=== PATIENT | female | born 1995 | race Caucasian/White ===

== ENCOUNTER 2024-01-05 21:07 | Emergency (ER) | payer OTHER, SELFPAY ==
--- NOTE | ~2024-01-05 | XR_ITS ---
EXAMINATION: XR LUMBOSACRAL SPINE CLINICAL INFORMATION: Radicular back pain COMPARISON: 06/28/2019 TECHNIQUE: Three views of the lumbosacral spine. FINDINGS: There is anatomic alignment of the lumbar vertebral bodies and posterior elements. Vertebral body heights and intervertebral disc spaces are maintained. No acute fracture is seen. Sacroiliac joints appear intact. XR/XR lumbar spine 2-3V IMPRESSION: No acute findings identified.
[2024-01-05 21:38] VITALS: BP 132/89; PULSE 54; RESP 16; TEMP 36.9; O2SAT 100; BMI 43.5
[2024-01-06] MEDS: Ketorolac Tromethamine 60 MG/2 ML VIAL IM (04:31)
[2024-01-06] MEDS: Cyclobenzaprine HCl 10 MG TABLET PO (04:31)
[2024-01-06 05:53] VITALS: BP 121/89; PULSE 88; RESP 17; TEMP 36.4; O2SAT 100
--- NOTE | 2024-01-06 05:55 | ED_ITS ---
HPI - Back Pain/Injury General Chief Complaint: Back Pain/Injury Stated Complaint: Lower back pain/ w leg pain Time Seen by Provider: 01/06/24 03:37 Source: patient Mode of arrival: ambulatory Limitations: no limitations History of Present Illness HPI Narrative: lumbar back pain for weeks radiating down both legs, no bowel or bladder incontinence, no fever MD elicited complaint: back pain Onset (ago): week(s) Timing: constant Severity: mild Related Data Previous Rx's ?Medication ?Instructions ?Recorded cyclobenzaprine 10 mg tablet 10 mg PO TID #10 tabs 01/06/24 naproxen 500 mg tablet (Naprosyn) 500 mg PO BID #20 tabs 01/06/24 Allergies Allergy/AdvReac Type Severity Reaction Status Date / Time amoxicillin [AMOXICILLIN] Allergy Mild RASH Verified 01/05/24 21:43 Penicillins [PENICILLINS] Allergy Mild RASH Verified 01/05/24 21:43 Review of Systems Review of Systems: Yes all other systems are reviewed and are negative Neurologic: Denies Sensory deficit (Neuro) [facility] Social History Social History Advance Directives: No Advance Directives Information Provided: Yes Physical Exam Vital Signs: Vital Signs: Last Vital Signs Temp 97.5 F 01/06/24 05:53 Pulse 88 01/06/24 05:53 Resp 17 01/06/24 05:53 BP 121/89 01/06/24 05:53 Pulse Ox 100 01/06/24 05:53 O2 Del Method Room Air 01/06/24 05:53 BMI result Body Mass Index 43.5 Const: General: healthy appearing Nutritional Appearance: average body habitus Orientation/consciousness: oriented to person and patient oriented x3 Limitations: no limitations HEENT: Head: Yes normal to inspection Ears: external ears normal General nose exam: Normal external nose present Mouth: Normal oral and palatal mucosa present and oropharynx normal Throat: Yes posterior oropharynx normal Eyes: General: appearance normal, both eyes and all related structures Neck: Other: supple Neck: Yes normal visual inspection Chest: Chest palpation & inspection: normal inspection of the chest Resp: Auscultation: clear to auscultation bilaterally Cardio: Jugular venous distension: no JVD Rate: regular rate Rhythm: regular rhythm Heart sounds: S1 normal heart sound present and S2 normal heart sound present GI: Inspection: Yes normal to inspection Palpation (GI): Soft to palpation, nontender and No hepatosplenomegaly present Auscultation: normal bowel sounds Back/Spine/Pelvis: Other: slight lumbar tenderness, right SI joint tenderness and right Sciatica tenderness Skin: General skin exam: no rashes or lesions noted Neuro: General: oriented to person and patient oriented x3 Cranial nerves: Yes CN's II-XII intact bilaterally Motor exam (neuro): 5/5 motor strength present throughout Sensory Exam: No Sensory deficit (Neuro) Extrem: General: Yes normal to inspection Psych: Appearance: grossly normal Course Reevaluation(s) Reevaluation #1: xray negative for tano destruction will dc on NSAIDS and flexeril Time: 05:58 Medications Administered Discontinued Medications Generic Name Dose Route Start Last Admin Trade Name Freq PRN Reason Stop Dose Admin Cyclobenzaprine HCl 10 mg 01/06/24 04:24 01/06/24 04:31 Cyclobenzaprine Hcl 10 Mg Tablet PO 01/06/24 04:25 10 mg ONCE ONE Administration Ketorolac Tromethamine 60 mg 01/06/24 04:24 01/06/24 04:31 Ketorolac Tromethamine 60 Mg/2 Ml Vial IM 01/06/24 04:25 60 mg ONCE ONE Administration Medical Decision Making Differential Diagnosis Differential Diagnoses: The differential diagnosis associated with the presentation includes (radicular back pain, sciatica) Independent Interpretation I performed an independent interpretation of an: Plain X-Ray (no tano destruction) Tests considered The following testing was considered but not selected: MRI of spine considered but no evidence of neurologic compromise Discharge Plan Discharge Clinical Impression: Lumbar radiculopathy, Sciatica Patient Disposition: Home, Self-Care Instructions: Acute Low Back Pain (ED), Lumbar Radiculopathy (ED) Prescriptions: New cyclobenzaprine 10 mg tablet 10 mg PO TID Qty: 10 0RF naproxen [Naprosyn] 500 mg tablet 500 mg PO BID Qty: 20 0RF Referrals: Physician,Unknown J [Primary Care Provider] - 1 week Print Language: Ukrainian
[2024-01-06 06:12] VITALS: BP 121/85; PULSE 88; RESP 17; TEMP 36.4; O2SAT 100
== END 2024-01-06 06:13 | disposition home or self-care (01) ==
PROVIDERS: Emergency Provider Emergency Medicine
DX: M54.16 Radiculopathy, lumbar region (principal); M54.40 Lumbago with sciatica, unspecified side
CPT/HCPCS: 72100; 96372; 99284; J1885

== ENCOUNTER 2024-07-25 08:35 | Emergency (ER) | payer OTHER, SELFPAY ==
--- NOTE | 2024-07-25 | ECG_ITS ---
Test Reason : syncope Blood Pressure : / mmHG Vent. Rate : 070 BPM Atrial Rate : 070 BPM P-R Int : 144 ms QRS Dur : 090 ms QT Int : 370 ms P-R-T Axes : 037 046 025 degrees QTc Int : 399 ms Normal sinus rhythm Normal ECG When compared with ECG of 05-OCT-2014 17:25, No significant change was found Referred By: Tanika Bojorquez Electronically Signed By:SUSAN GORDON MD
[2024-07-25 08:42] VITALS: BP 120/78; PULSE 75; RESP 18; TEMP 37; O2SAT 98; BMI 35.9
--- NOTE | 2024-07-25 08:44 | ED_ITS ---
HPI - General Adult General Chief complaint: Syncope Stated complaint: Lightheaded, dizzy Time Seen by Provider: 07/25/24 08:44 Source: patient Mode of arrival: ambulatory Limitations: no limitations History of Present Illness ED Provider: Tanika Bojorquez PA-C HPI narrative: 29-year-old female with no significant medical history presents to the ED after syncopizing in the PACU after her daughter had lacrimal tubes placed. The patient was standing up at her daughter's bedside wiping blood from her child's face when she started experiencing blurry vision. She felt weak and sat down on the floor. Denies loss of consciousness, denies head strike. Patient has not eaten anything this morning and was given juice in the PACU. Patient has been experiencing increased anxiety since Tuesday and has had poor appetite since then. Endorses one episode of vomiting on Tuesday. Denies any recent illness, cough, SOB, or other abdominal complaints. Patient states that she has once had a syncopal response to seeing blood a few years ago. She also endorses occasional palpitations but denies any diagnoses arrhythmia. On interview she is tearful and feels like she is in a brain fog. Denies photophobia, vision changes or chest pain. Relieving factors: none Exacerbating factors: none Associated symptoms: denies other symptoms Treatments prior to arrival: none Related Data Previous Rx's ?Medication ?Instructions ?Recorded cyclobenzaprine 10 mg tablet 10 mg PO TID #10 tabs 01/06/24 naproxen 500 mg tablet (Naprosyn) 500 mg PO BID #20 tabs 01/06/24 Allergies Allergy/AdvReac Type Severity Reaction Status Date / Time amoxicillin [AMOXICILLIN] Allergy Mild RASH Verified 07/25/24 08:44 Penicillins [PENICILLINS] Allergy Mild RASH Verified 07/25/24 08:44 Review of Systems 2 Constitutional: Constitutional: Denies chills, Denies fever(s), Denies headache(s), Denies night sweats, Reports poor appetite and Reports weakness Eyes: Eyes: Reports blurry vision, Denies change in vision, Denies diplopia, Denies eye discharge, Denies loss of vision and Denies eye pain ENT: Reports dizziness and Denies headache(s) Cardiovascular: Cardiovascular: Reports no additional cardiovascular complaints, Denies chest pain, Denies irregular heart rhythm, Reports lightheadedness, Denies Loss of Consciousness and Denies dyspnea Respiratory: Respiratory: Reports no additional respiratory complaints and Denies dyspnea Gastrointestinal: Gastrointestinal: Reports no additional gastrointestinal complaints, Denies abdominal pain, Denies melena, Denies hematochezia, Denies change in bowel habits and Denies change in stool character Genitourinary: Genitourinary: Denies hematuria, Denies urinary frequency, Denies dysuria, Denies urinary incontinence, Denies urinary hesitancy and Denies urinary urgency Musculoskeletal: Musculoskeletal: Reports no additional musculoskeletal complaints, Denies numbness and Denies tingling Neurologic: Reports dizziness, Denies headache(s), Denies loss of vision, Denies numbness, Denies tingling and Reports weakness Comments: near syncope Psychiatric: Psychiatric: Reports no additional psychiatric complaints Endocrine: Endocrine: Reports no additional endocrine complaints Hematologic/Lymphatic: Hematologic/Lymphatic: Reports no additional hematologic/lymphatic complaints Allergic/Immunologic: Allergic/Immunologic: Reports no additional allergic/immunologic complaints PMFSH Past Medical History Attestation statement: The following information was validated with the patient. Source: old records reviewed and nursing notes reviewed Social History Social History Alcohol intake: current Alcohol intake frequency: holidays/special occasions only Smoked in Last 30 Days: No Use of substances other than those prescribed or required for medical reasons: No Advance Directives: No Advance Directives Information Provided: Yes Physical Exam ED Vital Signs: Vital Signs - 24 hr 07/25/24 08:42 07/25/24 08:47 07/25/24 10:36 Temperature 98.6 F Pulse Rate 75 75 Respiratory Rate 18 18 Blood Pressure 120/78 108/64 Pulse Oximetry 98 97 98 Oxygen Delivery Method Room Air Room Air 07/25/24 11:38 Temperature 98 F Pulse Rate 75 Respiratory Rate 18 Blood Pressure 108/64 Pulse Oximetry 98 Oxygen Delivery Method Room Air BMI result Body Mass Index 35.9 Const General: cooperative, no acute distress, alert, awake and anxious Nutritional Appearance: well nourished Orientation/consciousness: patient oriented x3 Limitations: no limitations HENMT Head: Yes normal to inspection and Yes atraumatic Ears: hearing grossly normal bilaterally and external ears normal General nose exam: Normal external nose present, no nasal discharge noted and no epistaxis Face and sinus: Yes normal facial exam, No abrasion and No laceration Mouth: Normal oral and palatal mucosa present, no drooling and no muffled voice Eyes General: appearance normal, both eyes and all related structures Periorbital: periorbital findings normal Eyelids: Yes eyelids normal Conjunctivae: conjunctivae normal Pupils: Equal, round and reactive pupils present EOM: EOMs intact bilaterally Neck Neck: Yes normal visual inspection, Yes full ROM and Yes no lymphadenopathy Chest Chest palpation & inspection: normal inspection of the chest Resp Effort & Inspection: normal respiratory effort and able to speak in complete sentences Cardio Rate: regular rate Rhythm: regular rhythm Heart sounds: no gallops, no murmurs and no rubs GI Inspection: Yes normal to inspection Neuro General: patient oriented x3 and moves all extremities Cranial nerves: Yes Equal, round and reactive pupils present Cognition (Neuro): normal cognition Extrem General: Yes normal to inspection, Yes full ROM and Yes capillary refill normal Psych Appearance: grossly normal Mental Status: mental status grossly normal Affect: normal affect Attitude: cooperative Thought process: Normal thought process present Thought content: Normal thought content present Insight: Good insight present (Psych) Medical Decision Making Medical Decision Making MDM Narrative: Patient is a 29 year old assigned female at with no reported medical history presenting to the emergency department today after a near syncopal episode while wiping blood from her daughter's face. Patient's physical exam was unremarkable. Patient's blood work was unremarkable. Patient's urine showed no acute process. Patient's EKG was unremarkable. I explained my physical exam findings as well as all test results to the patient. I answered all questions asked by the patient. I stressed the importance of the patient taking her medication as directed (either prescribed or as the over the counter packaging recommends). I stressed the importance of the patient following up with her primary care provider. I stressed the importance of the patient returning to the emergency department immediately if her symptoms were to worsen or if she were to develop any dizziness, shortness of breath, difficulty breathing, chest pain, blurry vision, loss of vision, nausea, vomiting, abdominal pain, fever, chills, back pain, or any other complaints. Patient verbalized agreement and understanding with this treatment plan and discharge. Differential Diagnosis Differential Diagnoses: The differential diagnosis associated with the presentation includes Near syncope Dizziness Vasovagal episode Admission/Observation Consideration of admission/observation: Escalation of care including admission/observation considered Patient would have been admitted to the hospital had her work up had any findings where hospital admission was appropriate and her clinical presentation warranted hospital admission. Lab Data [facility] Lab Attestation statement: I reviewed the patient's lab results. My interpretation of these results are in the MDM Rationale portion of this note. 07/25/24 09:41 07/25/24 09:41 Labs: Lab Results 07/25/24 07/25/24 07/25/24 Range/Units 08:44 09:41 10:48 WBC 6.3 (4.8-10.8) X10*3/uL RBC 4.15 L (4.20-5.50) X10*6/uL Hgb 9.8 L (12.0-16.0) g/dl Hct 31.4 L (37.0-47.0) % MCV 75.7 L (80.0-98.0) fL MCH 23.6 L (27.0-33.0) pg MCHC 31.2 (31.0-35.0) g/dl RDW 17.1 H (11.0-16.0) % Plt Count 168 (160-400) X10*3/uL MPV TNP Immature Gran % (Auto) 0.3 (0.0-0.4) % Neut % (Auto) 57.6 (45-73) % Lymph % (Auto) 34.7 (20-40) % [place] % (Auto) 6.3 (2-11) % Eos % (Auto) 0.6 (0-4) % Baso % (Auto) 0.5 (0-2) % Lymph # (Auto) 2.2 (1.2-4.9) X10*3/uL [place] # (Auto) 0.4 (0.1-1.2) X10*3/uL Eos # (Auto) 0.0 (0.0-0.4) X10*3/uL Baso # (Auto) 0.0 (0.0-0.2) X10*3/uL Abs Immat Gran (auto) 0.02 (0.00-0.03) X10*3/uL Absolute Neuts (auto) 3.6 (2.0-8.3) x10*3/uL Absolute Nucleated RBC 0.000 (0.0-0.012) X10*3/uL Nucleated RBC % (auto) 0.0 (0.0-0.2) /100WBC Sodium 140 (135-145) mmol/L Potassium 3.6 (3.3-5.1) mmol/L Chloride 108 (96-108) mmol/L Carbon Dioxide 22 (22-29) mmol/L Anion Gap 14 (12-20) BUN 17 H (9-16) mg/dL Creatinine 0.73 (0.5-1.4) mg/dL Estim Creat Clear Calc 104.5 Estimated GFR > 60 POC Glucose 109 (60-115) mg/dL Random Glucose 106 (60-115) mg/dL Calcium 9.8 (8.4-10.2) mg/dL Magnesium 2.2 (1.6-2.6) mg/dL Total Bilirubin 0.3 (0.0-1.0) mg/dL AST 55 H (5-31) U/L ALT 63 H (0-31) U/L Alkaline Phosphatase 88 (39-117) U/L Troponin I High Sens < 2.7 (<3.5-17.0) ng/L Total Protein 8.0 (6.5-8.0) g/dL Albumin 4.2 (3.5-5.0) g/dL Beta HCG, Quant < 2 mIU/mL Urine Color Dark Yellow Urine Appearance Cloudy Urine pH 5.5 (5.0-9.0) Ur Specific [place] >= 1.030 H (1.005-1.025) Urine Protein 30 (1+) H (Neg-Trace) mg/dL Urine Glucose (UA) Negative (Negative) mg/dL Urine Ketones Trace (Negative) mg/dL Urine Blood Negative (Negative) Urine Nitrite Negative (Negative) Ur Leukocyte Esterase Moderate (2+) H (Negative) Urine RBC 0-2 (0-2) /HPF Urine WBC 21-50 (0-5) /HPF Ur Squamous Epith Cells 11-20 (0-2) /HPF Urine Bacteria 2+ (None Seen) Hyaline Casts 0-2 (0-2) /LPF Influenza Type A (PCR) NEGATIVE (Negative) Influenza Type B (PCR) NEGATIVE (Negative) RSV RNA Qual (PCR) NEGATIVE (Negative) SARS-CoV-2 RNA (RT-PCR) NEGATIVE (Negative) Independent Interpretation I performed an independent interpretation of an: EKG Interpretation: Vent. Rate: 070 BPM Atrial Rate: 070 BPM P-R Int: 144 ms QRS Dur: 090 ms QT Int: 370 ms P-R-T Axes: 037 046 025 degrees QTc Int: 399 ms Normal sinus rhythm Normal ECG When compared with ECG of 05-OCT-2014 17:25, No significant change was found DD/ [id number] Discharge Plan Discharge Clinical Impression: Near syncope Patient Disposition: Home, Self-Care Instructions: Near Syncope (ED) Additional Instructions: Follow up with your primary care provider. Return to the emergency department immediately if your symptoms worsen or if you develop any dizziness, shortness of breath, difficulty breathing, chest pain, blurry vision, loss of vision, nausea, vomiting, abdominal pain, fever, chills, back pain, or any other complaints. Prescriptions: No Action cyclobenzaprine 10 mg tablet 10 mg PO TID Qty: 10 0RF naproxen [Naprosyn] 500 mg tablet 500 mg PO BID Qty: 20 0RF Referrals: [facility] Family Medicine [Provider Group] (Call to establish and follow up with a primary care provider. If you already have a primary care provider, please follow up with them.) [facility] Primary Care, [place] [Provider Group] (Call to establish and follow up with a primary care provider. If you already have a primary care provider, please follow up with them.) [facility] Primary Care,Nancy [Provider Group] (Call to establish and follow up with a primary care provider. If you already have a primary care provider, please follow up with them.) Stand Alone Forms: Work/School Release Interventions: ED Discharge Assessment Last Done: 07/25/24 11:38 Discharge Date/Time: 07/25/24 11:40 Print Language: Persian
[2024-07-25 08:47] VITALS: O2SAT 97
[2024-07-25 08:49] LABS: Glucose, Whole Blood 109 mg/dL (60-115)
--- NOTE | 2024-07-25 08:58 | PC.NURSE ---
Arrived as an outpatient response accompanied by DRY CLEANER HELPER. Per DRY CLEANER HELPER patients 5 yr old had tubes placed in eyes this am and was in recovery with patient. 5 yr old had some blood on her face and patient reported feeling unwell. Patient upon arrival appears pale, states does feel a little dizzy. BS 109. Patient denies ever feeling this way before. is not a diabetic. Does not believe that this episode was caused by seeing the blood because she has seen blood before without this happening. States did not pass out but felt she was about to because she her vision became black. VSS. EKG obtained
[2024-07-25 09:47] LABS: MANUAL DIFF FLAG NO
[2024-07-25 09:54] LABS: Basophils Percent Auto 0.5 % (0-2); Eosinophils Percent Auto 0.6 % (0-4); Hematocrit 31.4 % (37.0-47.0); Hemoglobin 9.8 g/dl (12.0-16.0); Imm Gran Abs Auto 0.02 X10*3/uL (0.00-0.03); Imm Gran Pct Auto 0.3 % (0.0-0.4); Lymphocytes Absolute Auto 2.2 X10*3/uL (1.2-4.9); Lymphocytes Percent Auto 34.7 % (20-40); Mean Corpuscular HGB Conc 31.2 g/dl (31.0-35.0); Mean Corpuscular Hemoglobin 23.6 pg (27.0-33.0); Mean Corpuscular Volume 75.7 fL (80.0-98.0); Monocytes Absolute Auto 0.4 X10*3/uL (0.1-1.2); Monocytes Percent Auto 6.3 % (2-11); Neutrophils Absolute Auto 3.6 x10*3/uL (2.0-8.3); Neutrophils Percent Auto 57.6 % (45-73); Platelet Count 168 X10*3/uL (160-400); Red Blood Count 4.15 X10*6/uL (4.20-5.50); Red Cell Distribution Width 17.1 % (11.0-16.0); White Blood Count 6.3 X10*3/uL (4.8-10.8)
[2024-07-25 10:15] LABS: Alanine Aminotransferase 63 U/L (0-31); Albumin Level 4.2 g/dL (3.5-5.0); Alkaline Phosphatase 88 U/L (39-117); Anion Gap 14 (12-20); Aspartate Amino Transferase 55 U/L (5-31); Bilirubin Total 0.3 mg/dL (0.0-1.0); Blood Urea Nitrogen 17 mg/dL (9-16); Calcium 9.8 mg/dL (8.4-10.2); Carbon Dioxide 22 mmol/L (22-29); Chloride 108 mmol/L (96-108); Creatinine Clr Calc Pharmacy 104.5; Estimated Glomerular Filt Rate > 60; Glucose Random 106 mg/dL (60-115); HCG Quantitative < 2 mIU/mL; Magnesium 2.2 mg/dL (1.6-2.6); Potassium 3.6 mmol/L (3.3-5.1); Sodium 140 mmol/L (135-145); Troponin-I High Sensitivity < 2.7 ng/L (<3.5-17.0)
[2024-07-25 10:34] LABS: Influenza A PCR NEGATIVE (Negative); Influenza B PCR NEGATIVE (Negative); Resp Syncy Virus RNA Qual PCR NEGATIVE (Negative); SARS COV2 PCR INHOUSE NEGATIVE (Negative)
[2024-07-25 10:36] VITALS: BP 108/64; PULSE 75; RESP 18; O2SAT 98
[2024-07-25 10:59] LABS: Appearance Urine Cloudy; Color Urine Dark Yellow; Glucose Urine UA Negative (Negative); Leukocyte Esterase Urine Moderate (2+) (Negative); Nitrite Urine Negative (Negative); PH 5.5 (5.0-9.0); Specific Gravity - Urine >= 1.030 (1.005-1.025); UMIC TRIGGER UACC YES; Urine Blood Negative (Negative); Urine Ketones Trace mg/dL (Negative); Urine Protein 30 (1+) mg/dL (Neg-Trace)
[2024-07-25 11:18] LABS: Bacteria Urine 2+ (None Seen); Hyaline Casts Urine 0-2 /LPF (0-2); RBC Urine 0-2 /HPF (0-2); UACC Culture Trigger YES; WBC Urine 21-50 /HPF (0-5)
[2024-07-25 11:38] VITALS: BP 108/64; PULSE 75; RESP 18; TEMP 36.6; O2SAT 98
== END 2024-07-25 11:40 | disposition home or self-care (01) ==
PROVIDERS: Physician Assistant Medical; Emergency Provider Emergency Medicine
DX: R55 Syncope and collapse (principal); Z03.818 Encounter for observation for suspected exposure to other biological agents ruled out
CPT/HCPCS: 0241U; 36415; 80053; 81001; 81003; 82947; 83735; 84484; 84702; 85025; 87086; 87147; 93005; 99283; 99285

== ENCOUNTER → 2024-07-25 08:48 | Outpatient (BNV) | payer OTHER, SELFPAY | PROVIDERS: Emergency Provider Emergency Medicine; Visit Provider Internal Medicine Cardiovascular Disease | DX: R55 Syncope and collapse (principal) | CPT/HCPCS: 93010 ==

== ENCOUNTER 2025-08-20 00:36 | Emergency (ER) | payer OTHER, SELFPAY ==
--- NOTE | 2025-08-20 | ECG_ITS ---
Test Reason : TACHYCARDIA Blood Pressure : */* mmHG Vent. Rate : 114 BPM Atrial Rate : 114 BPM P-R Int : 130 ms QRS Dur : 78 ms QT Int : 320 ms P-R-T Axes : 60 22 24 degrees QTcB Int : 441 ms Sinus tachycardia Cannot rule out Anterior infarct , age undetermined Abnormal ECG When compared with ECG of 25-Jul-2024 08:48, Vent. rate has increased by 44 bpm Referred By: Generic ED Physician Electronically Signed By: IRAIS XAVIER
--- NOTE | ~2025-08-20 | XR_ITS ---
CLINICAL HISTORY: cough 1 view chest x-ray. Comparison: None provided. Findings: No consolidation, pneumothorax, or effusion. Heart size normal. Impression: 1. No acute cardiopulmonary process. No focal pulmonary consolidation. This document has been electronically signed by: Thomas Lanza MD on 08/20/2025 02:30:03
[2025-08-20 00:43] VITALS: BP 134/87; PULSE 125; O2SAT 100
[2025-08-20 00:44] VITALS: BP 107/71; PULSE 122; RESP 18; TEMP 37.5; O2SAT 99; BMI 33.9
--- OUTSIDE RECORDS SUMMARY | 2025-08-20 01:06 | XMS_ITS | Encounter Summary ---
Author Organization [facility] Address [address] [place] [id number] Phone Care Team Providers Care Railroad Signal Operator Name Role Phone Unavailable Primary Care Provider Unavailabl e Encounter Details Date Type Department Care Team (Late st Contact Info) Description 09/28/2011 Documentation [facility] [place] [address] [place] [address] Family Medicine, Physician [facility] [address] Social History Tobacco Use Types Packs/Day Years Used Date Smoking Tobacco: Never Assessed Comments Unknown Sex and Gender Information Value Date Recorded Sex Assigned at Not on file Legal Sex Female 4:41 PM EDT Gender Identity Not on file Sexual Orientation Not on file documented as of this encounter Plan of Treatment Not on file documented as of this encounter Visit Diagnoses Not on filedocumented in this encounter
--- OUTSIDE RECORDS SUMMARY | 2025-08-20 01:06 | XMS_ITS ---
Author Name [facility] Organization Unknown Care Team Organization Name Specialty Phone Email Start Date End Da te [facility] SUDHEER HOFFMAN Primary Care 11/24/2022 05/07/20 [facility] 07/27/2022 05/07/20 24
--- OUTSIDE RECORDS SUMMARY | 2025-08-20 01:06 | XMS_ITS | Encounter Summary ---
Author Organization [facility] Address [address] [place] [address] Phone Care Team Providers Care Habilitation Specialist Name Role Phone Unavailable Primary Care Provider Unavailabl e Encounter Details Date Type Department Care Team (Late st Contact Info) Description 08/18/2010 Documentation [facility] [place] [address] [place] [address] Family Medicine, Physician [facility] [place] [address] Social History Tobacco Use Types [...]
--- OUTSIDE RECORDS SUMMARY | 2025-08-20 01:06 | XMS_ITS | Encounter Summary ---
Author Organization [facility] Address [address] [place] [address] Phone Care Team Providers Care Court Officer Name Role Phone Unavailable Primary Care Provider Unavailabl e Encounter Details Date Type Department Care Team (Late st Contact Info) Description 05/05/2017 Conversion Encounter [facility] - [address] [phone] Social History Tobacco Use Types Packs/Day Years [...]
--- OUTSIDE RECORDS SUMMARY | 2025-08-20 01:06 | XMS_ITS | Clinical Summary ---
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 Nausea 11/17/2021 Active ferrous gluconate (FERGON) 324 mg (37.5 mg iron) tablet Take 1 tablet (324 mg total) by mouth 1 (one) time each day. 10/19/2021 Active PNV,calcium 72/iron,carb/fol ic ( PLUS ORAL) Take 1 tablet by mouth 1 (one) time each day. 07/14/2018 Active Active Problems Problem Noted Date Diagnosed Date Abdominal pain 09/24/2024 Overview (09/24/2024): 05/01 Ct at [place] ED, early appendicitis vs IBD, reactive adenitis, moderate pelvic free fluid. Admitted at [facility] for three days 08/20/13: seen by Dr. Hansen, persistent pain, nighttime awakening, stools every 4 days. Abd ultrasound normal. F/u 2-3 weeks 08/24/13: upper endoscopy and sigmoidoscopy. Poor bowel prep. Grossly normal. Abnormal GTT (glucose tolerance test) 03/04/2022 Overview (09/24/2024): 03/03/2022 1 hr GTT 155 --> 3 Hr GTT ____ Anemia in 11/17/2021 Overview (09/24/2024): Iron supplement sent Obesity in 10/20/2021 Overview (09/24/2024): HgbA1C at initial labs One hour GTT in first trimester Repeat GTT 24-28 weeks if early is normal Level 2 Survey (at [facility] for BMI >40) Refer to nutrition for BMI >40 Growth US at 32 and 36 weeks for for BMI >40 Weekly NST at 32 weeks for BMI >45 Screen for PRESLEY (using tool) and refer for sleep study if positive Anesthesia consult for pre- BMI >45 or >50 lb weight gain Transfer to [facility] for pre- BMI >50 DVT prophylaxis- Lovenox if CS and BMI >35 Obesity (BMI 30-39.9) 01/24/2019 Menorrhagia 06/16/2015 Constipation 05/29/2015 Overview (09/24/2024): resolved Immunizations Immunization Administration Dates Next Due DTP 02/25/2000, 6,1995,07/19,1995 [id number] (Pentacel) 2mo to less than 5yo 07/19/1996,1995,1995,05/19 H1N1 Inj Preservative Free 12/29/2009 HPV, Quadrivalent 12/29/2009,02/04/2009,12/06/19 09 Hepatitis A Pediatric (Havri x; Vaqta) 12mo to less than 19yo 01/15/2013,02/22/2011 Hepatitis B Pediatric (Enger ix B; Recombivax HB) to less than 20 yo 1995,1995,1995 Influenza Quadravalent, MDCK , 0.5ml, preservative free (Flucelvax) 6mo and older 10/20/2021 Influenza trivalent, 0.5mL, preservative free (Fluarix; FluLaval; Fluzone) ages 6mo and older (Afluria) 3 years and older 07/21/2016,06/21/2014 Influenza trivalent, with pr eservative (Fluzone; Afluria) 6mo and older 05/29/2015,09/29/2012,09/10/2011 MMR, measles mumps and rubel la Live (Priorix; M-M-R II) 12mo and older 07/19/1996,02/17/1996 MMRV, measles mumps rubella and varicella live (Proquad) 4yo to less than 7yo 07/19/1996 Meningococcal MCV4P 12/05/2008 OPV 02/25/2000, 6,1995,05/19 PPD Test 04/16/2014 Tdap Tetanus diptheria acell ular pertussis (Boostrix; Adacel) 7yo and older 03/02/2022,08/29/2007 Varicella live (Varivax) 12m o and older 12/05/2008 Surgical History Surgery Date Site/Laterality Comments TONSILLECTOMY 1996 PROCEDURE: HISTORICAL TONSILLECTOMY Medical History Medical History Date Comments Depression 12/2009 DX:Depression; C OMMENT: met with counselor H. pylori infection 10/02/2012 DX:H. pylori infection; COMMENT: treated with triple therapy. E. coli UTI 12/30 DX:E. coli UTI Hearing loss 01/15/2013 DX:Hearing loss; COMMENT: Nl hearing at [facility] 03/31 Abdominal pain 05/01 DX:Abdominal santiago n; COMMENT: Ct at [facility] ED, early appendicitis vs IBD, reactive adenitis, moderate pelvic free fluid E. coli UTI 12/31 DX:E. coli UTI; COMMENT: resistent to Bactrim, treated with cipro Iron deficiency anemia 09/29/2012 DX:Iron d eficiency anemia; COMMENT: 9.2, started on iron, recheck in December 21: hgb 9.2 E. coli UTI 10/03 DX:E. coli UTI; COMMENT: gray sensitive, treated with cipro Abnormal AFP3 test 08/06/2016 DX:Abnormal A FP3 test; COMMENT: Unexplained elevated test results. nl study, 4 wk fu planned Family History Medical History Relation Name Comments Hyperlipidemia Father ? Diabetes Hypertension Father No Known Problems Mother Diabetes Paternal Grandmother Other: of heart attack 2018 Paternal Grandmother No Known Problems Sister 1 No Known Problems Sister 2 No Known Problems Sister 3 maternal 1/2 sister Breast cancer Neg Hx Cervical cancer Neg Hx Ovarian cancer Neg Hx Uterine cancer Neg Hx Relation Name Status Comments Father Alive Maternal Grandfather Alive Maternal Grandmother Alive Mother Alive Paternal Grandfather Paternal Grandmother Sister 1 Alive Sister 2 Alive Sister 3 maternal 1/2 sister Alive Social History Tobacco Use Types Packs/Day Years Used Date Smoking Tobacco: Never Smokeless Tobacco: Never Alcohol Use Standard Drinks/Week Comments No 0 (1 standard drink = 0.6 oz pur e alcohol) Comments Unknown Sex and Gender Information Value Date Recorded Sex Assigned at Not on file Legal Sex Female 7:02 AM EST Gender Identity Not on file Sexual Orientation Not on file Obstetrics History Last Filed Vital Signs Vital Sign Reading Time Taken Comments Blood Pressure 117/84 05/03/2022 11:18 AM EDT Pulse 106 05/03/2022 11:18 AM EDT Temperature - - Respiratory Rate - - Oxygen Saturation - - Inhaled Oxygen Concentration - - Weight 87.5 kg (193 lb) 05/03/2022 11:18 AM EDT Height - - Body Mass Index - - Plan of Treatment Health Maintenance Due Date Last Done Comments Cholesterol Screening (Lipid Panel) 08/22/2022 Social Influencers of Health Screening 08/22/2022 Depression Screening 09/19/2024 COVID-19 Vaccine ( season) 2025 Influenza Vaccine (#1) 2025 , 07/21/2016, 05/29/2015, Additional history exists Cervical Cancer Screening: HPV 11/06/2026 11/06/2021 DTaP,Tdap,and Td Vaccines (8 - Td or Tdap) 03/02/2032 03/02/2022, 08/29/2007, 02/25/2000, Additional history exists RSV Immunization Adult Patients (1 - 1-dose 75+ series) 2070 Hepatitis B Vaccines Completed 1995, 1995, 1995 HIB Vaccines Completed 07/19/1996, 09/21, 1995, Additional history exists MMR Vaccines Completed 07/19/1996, 06/21, 02/17/1996 IPV Vaccines Completed 02/25/2000, 06/21, 1995, Additional history exists Meningococcal ACWY Vaccine Aged Out 12/05/2008 N o longer eligible based on patient's age to complete this topic Varicella Vaccines Completed 12/05/2008, 07/19/1996 HPV Vaccines Completed 12/29/2009, 01/17, 12/05/2008 Hepatitis A Vaccines Completed 01/15/2013, 02/23/20 11 HIV Screening Completed 10/16/2021 Hepatitis C Screening Completed 10/16/2021 Meningococcal B Vaccine Aged Out No l onger eligible based on patient's age to complete this topic Pneumococcal Vaccine: Pediatrics (0 to 5 Years) and At-Risk Patients (6 to 49 Years) Aged Out No longer eligible based on patient's age to complete this topic RSV Immunization Patients Under 20 months Aged Out No longer eligible based on patient's age to complete this topic Procedures Procedure Name Priority Date/Time Associated Diagnosis Comments HPV Routine 11/06/2021 HEPATITIS C SCREENING Routine 10/16/2021 HIV SCREENING Routine 10/16/2021 from Last 3 Months or Most Recently Relevant to Health Maintenance Results * Cervical Cancer Screening: HPV (11/06/2021) Pathologist [facility] Cervical Cancer Screening: HPV negative, abstracted [facility] Provider HEALTH MAINTENANCE Final Result * HIV Screening (10/16/2021) [facility] HIV Screening abstracted [facility] Provider HEALTH MAINTENANCE Final Result * Hepatitis C Screening (10/16/2021) [facility] Hepatitis C Screening abstracted [facility] Provider HEALTH MAINTENANCE Final Result from Last 3 Months or Most Recently Relevant to Health Maintenance Care Teams Gas Generator Operator Relationship Specialty Start Date End Date Susana Bender MD PCP - General 04/25/23
--- OUTSIDE RECORDS SUMMARY | 2025-08-20 01:06 | XMS_ITS | Encounter Summary ---
Author Organization [facility] Address [address] [place] [phone] Phone Care Team Providers Care Application Tester Name Role Phone Unavailable Primary Care Provider Unavailabl e Encounter Details Date Type Department Care Team (Late st Contact Info) Description 01/08/[address] [facility] [facility] [address] [place] [address] Family Medicine, Physician [facility] [place] [address] Social History Tobacco Use Types [...]
--- OUTSIDE RECORDS SUMMARY | 2025-08-20 01:06 | XMS_ITS | Clinical Summary ---
Author Organization [facility] Address [address] [place] [phone] Phone Care Team Providers Care Study Assistant Name Role Phone Unavailable Primary Care Provider Unavailabl e Immunizations Immunization Administration Dates Next Due DTP 02/25/2000, 6,1995, 995,1995 H1N1 12/29/2009 HPV, Quadrivalent 12/29/2009,02/04/2009,12/06/19 09 Hep A, ped/adol 02/22/2011 Hep B, ped/adol 1995,1995,1995 Hib (PRP-T) 07/19/1996, 6,1995, 995 IPV 1995,1995,1995 Influenza Split 09/10/2011 MMR 07/19/1996,02/17/1996 Meningococcal Conj (Menactra) MCV4P 12/05/2008 OPV 02/25/2000 Tdap 08/29/2007 Varicella 12/05/2008,07/19/1996 Family History Relation Name Status Comments Father Alive Father: Alive a nd well Mother Alive Mother: Alive a nd well Paternal Grandfather Paterna l grandfather: Diabetes mellitus Sister 1 Alive Sister: Alive a nd well, Alive and well, Alive and well Sister 2 Alive Sister: Alive a nd well, Alive and well, Alive and well Sister 3 Alive Sister: Alive a nd well, Alive and well, Alive and well Social History Tobacco Use Types Packs/Day Years Used Date Smoking Tobacco: Never Assessed Comments Unknown Sex and Gender Information Value Date Recorded Sex Assigned at Not on file Legal Sex Female 4:41 PM EDT Gender Identity Not on file Sexual Orientation Not on file Last Filed Vital Signs Vital Sign Reading Time Taken Comments Blood Pressure 90/60 03/18/2011 12:00 AM EDT Pulse 64 03/18/2011 12:00 AM EDT Temperature 36 C (96.8 F) 09/10/2011 12:00 AM EST Respiratory Rate - - Oxygen Saturation - - Inhaled Oxygen Concentration - - Weight 49 kg (108 lb) 09/10/2011 12:00 AM EST Height 149.4 cm (4' 10.8 ) 02/22/2011 12:00 AM E DT Body Mass Index - - Plan of Treatment Health Maintenance Due Date Last Done Comments Hepatitis A Vaccines (2 of 2 - 2-dose series) 08/24/2011 02/22/2011 DTaP,Tdap,and Td Vaccines (7 - Td or Tdap) 08/29/2017 08/29/2007, 02/25/2000, 09/18/1996, Additional history exists Influenza Vaccines (#1) 2025 09/10/2011 COVID-19 Vaccine ( season) 2025 Hepatitis B Vaccines Completed 1995, 1995, 1995 HIB Vaccines Completed 07/19/1996, 09/21, 1995, Additional history exists MMR Vaccines Completed 07/19/1996, 02/17/1996 IPV Vaccines Completed 02/25/2000, 09/21, 1995, Additional history exists Meningococcal Vaccine Aged Out 12/05/2008 No denita alfredo eligible based on patient's age to complete this topic Varicella Vaccines Completed 12/05/2008, 07/19/1996 HPV Vaccines Completed 12/29/2009, 01/17, 12/05/2008 Men B Vaccine Aged Out No longer elig ible based on patient's age to complete this topic Pneumococcal Vaccine Aged Out No long er eligible based on patient's age to complete this topic
[2025-08-20 01:21] VITALS: BP 108/74; PULSE 103; RESP 18; O2SAT 100
[2025-08-20 01:43] LABS: Alanine Aminotransferase 18 U/L (0-31); Albumin Level 4.8 g/dL (3.5-5.0); Alkaline Phosphatase 101 U/L (39-117); Anion Gap 14 (12-20); Aspartate Amino Transferase 33 U/L (5-31); Blood Urea Nitrogen 12 mg/dL (9-16); Calcium 9.9 mg/dL (8.4-10.2); Carbon Dioxide 21 mmol/L (22-29); Chloride 108 mmol/L (96-108); Creatinine Clr Calc Pharmacy 109.3; Estimated Glomerular Filt Rate > 60; Lipase 26 U/L (8-78); Potassium 3.5 mmol/L (3.3-5.1); Sodium 139 mmol/L (135-145); Total Protein 7.9 g/dL (6.5-8.0)
[2025-08-20 01:44] LABS: IDNOW Serial# 58CA691E; Influenza B2 Negative (Negative)
[2025-08-20 01:45] LABS: COVID-19 Test Negative (Negative); IDNOW Serial# 55D5AD1C
[2025-08-20 01:53] LABS: Hematocrit 28.8 % (37.0-47.0); Hemoglobin 8.7 g/dl (12.0-16.0); Imm Gran Abs Auto 0.02 X10*3/uL (0.00-0.03); Imm Gran Pct Auto 0.3 % (0.0-0.4); Lymphocytes Absolute Auto 1.1 X10*3/uL (1.2-4.9); MANUAL DIFF FLAG SCAN; Mean Corpuscular HGB Conc 30.2 g/dl (31.0-35.0); Mean Corpuscular Hemoglobin 20.9 pg (27.0-33.0); Mean Corpuscular Volume 69.1 fL (80.0-98.0); NRBC Abs Auto 0.000 X10*3/uL (0.0-0.012); NRBC Pct Auto 0.0 /100WBC (0.0-0.2); PLT CLUMP 1; Red Blood Count 4.17 X10*6/uL (4.20-5.50); SCAN SMEAR FLAG 1
[2025-08-20 01:55] LABS: Troponin-I High Sensitivity < 2.7 ng/L (<3.5-17.0)
[2025-08-20 02:47] LABS: Platelet Count 195 X10*3/uL (160-400); White Blood Count 7.5 X10*3/uL (4.8-10.8)
[2025-08-20 03:07] VITALS: BP 111/70; PULSE 108; RESP 20; TEMP 37.7; O2SAT 100
--- NOTE | 2025-08-20 03:08 | PC.NURSE ---
pt feeling very dizzy and weak, feels like she will pass out. pt given nina harry. VSS.
--- NOTE | 2025-08-20 03:29 | ED.GENADULT ---
HPI - General Adult General Chief complaint: Upper Respiratory Symptoms Stated complaint: dizziness, Nausea Time Seen by Provider: 08/20/25 03:18 Source: patient Limitations: no limitations History of Present Illness ED Provider: Aline Mack PA-C HPI narrative: 30-year-old female presents with viral syndrome since earlier today. Associated generalized malaise, fever, fatigue, myalgias, palpitations, nausea and dizziness. Patient noted a fever of 102 at home. Her cough is productive at times. No known sick contacts with similar symptoms. Related Data Previous Rx's ?Medication ?Instructions ?Recorded cyclobenzaprine 10 mg tablet 10 mg PO TID #10 tabs 01/06/24 naproxen 500 mg tablet (Naprosyn) 500 mg PO BID #20 tabs 01/06/24 ondansetron 4 mg disintegrating 4 mg PO Q8H PRN nausea and 08/20/25 tablet vomiting #10 tabs Allergies Allergy/AdvReac Type Severity Reaction Status Date / Time amoxicillin (AMOXICILLIN) Allergy Mild RASH Verified 08/20/25 00:47 Penicillins (PENICILLINS) Allergy Mild RASH Verified 08/20/25 00:47 Review of Systems Review of Systems: Yes all other systems are reviewed and are negative Constitutional: Constitutional: Reports fatigue, Reports fever(s) and Reports malaise Cardiovascular: Cardiovascular: Denies chest pain and Denies dyspnea Respiratory: Respiratory: Reports chest congestion, Reports cough and Denies dyspnea Gastrointestinal: Gastrointestinal: Denies abdominal pain, Denies diarrhea, Reports nausea and Denies vomiting Musculoskeletal: Musculoskeletal: Reports myalgias Endocrine: Endocrine: Reports fatigue PMFSH Past Medical History Attestation statement: The following information was validated with the patient. Social History Social History Alcohol intake: current Alcohol intake frequency: holidays/special occasions only Physical Exam ED Vital Signs: Vital Signs - 24 hr 08/20/25 00:44 08/20/25 01:21 08/20/25 03:07 Temperature 99.5 F 99.8 F Pulse Rate 122 H 103 H 108 H Respiratory Rate 18 18 20 Blood Pressure 107/71 108/74 111/70 Pulse Oximetry 99 100 100 Oxygen Delivery Method Room Air Room Air Room Air BMI result Body Mass Index 33.9 Const Other: Alert Orientation/consciousness: patient oriented x3 Resp Effort & Inspection: normal respiratory effort Cardio Other: Normal peripheral perfusion Skin Other: Warm dry no rash Neuro General: patient oriented x3, gait normal, no focal motor deficits and CN's II-XI intact bilaterally Psych Other: Cooperative Medications Administered Discontinued Medications Generic Name Dose Route Start Last Admin Trade Name Haq PRN Reason Stop Dose Admin Ondansetron HCl 4 mg 08/20/25 03:24 08/20/25 03:44 Ondansetron Odt 4 Mg Tab.Rapdis TRANSLINGU 08/20/25 03:25 4 mg ONCE ONE Administration Medical Decision Making Medical Decision Making MDM Narrative: 30-year-old female presents with viral syndrome since earlier today. Associated generalized malaise, fever, fatigue, myalgias, palpitations, nausea and dizziness. Patient noted a fever of 102 at home. Her cough is productive at times. No known sick contacts with similar symptoms. No relevant chronic issues History: Per patient I have considered the following differential diagnoses: Viral syndrome, bronchitis, pneumonia Plan: Screening labs including chest x-ray and viral panel ordered from triage, the patient has a influenza I have independently reviewed the following tests: Labs: No overall leukocytosis, left shift noted, stable anemia, no electrolyte abnormality, positive for influenza A Chest x-ray:Findings: No consolidation, pneumothorax, or effusion. Heart size normal. Impression: 1. No acute cardiopulmonary process. No focal pulmonary consolidation. Differential Diagnosis Differential Diagnoses: The differential diagnosis associated with the presentation includes See [facility] Admission/Observation Consideration of admission/observation: Escalation of care including admission/observation considered Not applicable Lab Data [facility] Lab Attestation statement: I reviewed the patient's lab results. 08/20/25 01:11 08/20/25 01:11 Labs: Lab Results 08/20/25 08/20/25 Range/Units 01:01 01:11 WBC 7.5 (4.8-10.8) X10*3/uL RBC 4.17 L (4.20-5.50) X10*6/uL Hgb 8.7 L (12.0-16.0) g/dl Hct 28.8 L (37.0-47.0) % MCV 69.1 L (80.0-98.0) fL MCH 20.9 L (27.0-33.0) pg MCHC 30.2 L (31.0-35.0) g/dl RDW 18.3 H (11.0-16.0) % Plt Count 195 (160-400) X10*3/uL MPV Not Reportable Immature Gran % (Auto) 0.3 (0.0-0.4) % Neut % (Auto) 79.5 H (45-73) % Lymph % (Auto) 14.6 L (20-40) % [place] % (Auto) 5.2 (2-11) % Eos % (Auto) 0.1 (0-4) % Baso % (Auto) 0.3 (0-2) % Lymph # (Auto) 1.1 L (1.2-4.9) X10*3/uL [place] # (Auto) 0.4 (0.1-1.2) X10*3/uL Eos # (Auto) 0.0 (0.0-0.4) X10*3/uL Baso # (Auto) 0.0 (0.0-0.2) X10*3/uL Abs Immat Gran (auto) 0.02 (0.00-0.03) X10*3/uL Absolute Neuts (auto) 5.9 (2.0-8.3) x10*3/uL Absolute Nucleated RBC 0.000 (0.0-0.012) X10*3/uL Nucleated RBC % (auto) 0.0 (0.0-0.2) /100WBC Smear Tech's Comments VERIFIED Sodium 139 (135-145) mmol/L Potassium 3.5 (3.3-5.1) mmol/L Chloride 108 (96-108) mmol/L Carbon Dioxide 21 L (22-29) mmol/L Anion Gap 14 (12-20) BUN 12 (9-16) mg/dL Creatinine 0.67 (0.5-1.4) mg/dL Estim Creat Clear Calc 109.3 Estimated GFR > 60 Random Glucose 98 (60-115) mg/dL Calcium 9.9 (8.4-10.2) mg/dL Total Bilirubin 0.2 (0.0-1.0) mg/dL AST 33 H (5-31) U/L ALT 18 (0-31) U/L Alkaline Phosphatase 101 (39-117) U/L Troponin I High Sens < 2.7 (<3.5-17.0) ng/L Total Protein 7.9 (6.5-8.0) g/dL Albumin 4.8 (3.5-5.0) g/dL Lipase 26 (8-78) U/L COVID-19 (ALESIA) Negative (Negative) COVID-19 Clin Com See Note Influenza Type A (DAY) Positive A (Negative) Influenza Type B (DAY) Negative (Negative) Influenza A & B Note See Note Independent Interpretation I performed an independent interpretation of an: EKG Radiology Impression Discussion of test interpretation with radiology: I have reviewed the radiologist's reading. Discharge Plan Discharge Clinical Impression: Influenza Patient Disposition: Home, Self-Care Instructions: Influenza (ED) Additional Instructions: You tested positive for influenza. See home care instructions. The remainder of your labs were within normal limits, you are anemic however it is stable anemia. There was no pneumonia on the chest x-ray. See home care instructions. Uses Zofran as needed for nausea. You can alternate between [id number] Tylenol 1000 mg taken every 8 hours, with [id number] ibuprofen 600 mg taken every 6 hours with food, for fever, headache and body aches. Prescriptions: New ondansetron 4 mg tablet,disintegrating 4 mg PO Q8H PRN (Reason: nausea and vomiting) Qty: 10 0RF No Action cyclobenzaprine 10 mg tablet 10 mg PO TID Qty: 10 0RF naproxen [Naprosyn] 500 mg tablet 500 mg PO BID Qty: 20 0RF Stand Alone Forms: Work/School Release Interventions: ED Discharge Assessment Last Done: 08/20/25 03:55 Print Language: Danish
[2025-08-20 03:55] VITALS: BP 111/70; PULSE 108; RESP 20; TEMP 37.7; O2SAT 100
== END 2025-08-20 03:56 | disposition home or self-care (01) ==
PROVIDERS: Emergency Provider Emergency Medicine
DX: J10.1 Influenza due to other identified influenza virus with other respiratory manifestations (principal); R42 Dizziness and giddiness; R11.0 Nausea; R50.9 Fever, unspecified; R00.2 Palpitations; R00.0 Tachycardia, unspecified; R53.83 Other fatigue; R05.9 Cough, unspecified; Z03.818 Encounter for observation for suspected exposure to other biological agents ruled out
CPT/HCPCS: 36415; 71045; 80053; 83690; 84484; 85025; 87502; 87635; 93005; 99283; 99284

== ENCOUNTER → 2025-08-20 00:54 | Outpatient (BNV) | payer OTHER, SELFPAY | PROVIDERS: Emergency Provider Emergency Medicine; Visit Provider Internal Medicine | DX: R00.0 Tachycardia, unspecified (principal) | CPT/HCPCS: 93010 ==

== ENCOUNTER → 2025-08-20 02:11 | Outpatient (BNV) | payer OTHER, SELFPAY | PROVIDERS: Visit Provider Radiology Diagnostic Radiology | DX: R05.9 Cough, unspecified (principal) | CPT/HCPCS: 71045 ==